=== PATIENT | male | born 1990 | race Caucasian/White ===

== ENCOUNTER 2017-07-03 17:32 | Inpatient (IN) | payer OTHER ==
[~2017-07-03] VITALS: Ht 198.1 cm; Wt 74.0 kg
[2017-07-03 17:44] LABS: BASOPHIL (%) 0.3 % (0-1); BASOPHIL COUNT 0.1 K/uL (0-0.1); EOSINOPHIL COUNT 0.2 K/uL (0-0.3); HEMATOCRIT 39.6 % (38.0-50.0); HEMOGLOBIN 13.7 G/DL (12.5-16.6); IMMATURE GRANULOCYTE (%) 0.4 % (0.0-0.7); LYMPHOCYTE (%) 8.5 % (15-42); LYMPHOCYTE COUNT 1.3 K/uL (1.0-2.8); MCH 30.2 PG (29.0-34.0); MCHC 34.6 G/DL (30.0-36.0); MCV 87.2 FL (86-99); MONOCYTE (%) 5.9 % (3-12); MONOCYTE COUNT 0.9 K/uL (0-0.8); NEUTROPHIL (%) 83.9 % (45-76); NEUTROPHIL COUNT 12.4 K/uL (1.8-6.4); PLATELET COUNT 280 K/uL (156-360); RBC DIS.WIDTH-CV 12.2 % (11.8-14.6); RBC DIS.WIDTH-SD 39.2 % (39-53); RED BLOOD COUNT 4.54 M/uL (4.00-5.50); WHITE BLOOD COUNT 14.8 K/uL (4.1-10.2)
[2017-07-03 18:18] LABS: AMYLASE 25 IU/L (1-118); CHLORIDE 102 MEQ/L (99-109); CREATININE 0.8 MG/DL (0.6-1.3); GFR ESTIMATE (CALCULATED) > 59 mL/min/ (58.99-99999); GLUCOSE 106 mg/dL (70-99); LIPASE 11 U/L (1.0-51.0); POTASSIUM 4.4 MEQ/L (3.7-5.4); SERUM ETHYL ALCOHOL < 10 mg/dL; SODIUM 138 MEQ/L (136-147); UREA NITROGEN (BUN) 15 mg/dL (9-23)
[2017-07-03] MEDS ORDERED: MOBIC7.5 MG PO (18:21)
[2017-07-03] MEDS ORDERED: BACLOFEN10 MG PO ×3 (18:21→18:22)
[2017-07-03] MEDS ORDERED: GLUCOSAMINE &1 EACH PO (18:21)
[2017-07-03 22:15] VITALS: BP 159/77
[2017-07-04] VITALS (7 sets, daily range): BP systolic 102–125; BP diastolic 54–75
[2017-07-04 05:20] LABS: HEMATOCRIT 36.5 % (38.0-50.0); HEMOGLOBIN 12.7 G/DL (12.5-16.6); MCH 30.3 PG (29.0-34.0); MCHC 34.8 G/DL (30.0-36.0); MCV 87.1 FL (86-99); PLATELET COUNT 249 K/uL (156-360); RBC DIS.WIDTH-CV 12.4 % (11.8-14.6); RBC DIS.WIDTH-SD 39.7 % (39-53); RED BLOOD COUNT 4.19 M/uL (4.00-5.50); WHITE BLOOD COUNT 9.1 K/uL (4.1-10.2)
[2017-07-04 05:47] LABS: ALBUMIN 4.4 G/DL (3.2-4.8); ALKALINE PHOSPHATASE 81 IU/L (3-129); ALT (GPT) 19 IU/L (3-49); AST (GOT) 21 IU/L (2-34); CHLORIDE 101 MEQ/L (99-109); CREATININE 0.7 MG/DL (0.6-1.3); GFR ESTIMATE (CALCULATED) > 59 mL/min/ (58.99-99999); GLUCOSE 85 mg/dL (70-99); POTASSIUM 3.7 MEQ/L (3.7-5.4); SODIUM 138 MEQ/L (136-147); TOTAL BILIRUBIN 1.6 MG/DL (0.0-1.0); TOTAL PROTEIN 6.9 G/DL (6.4-8.3); UREA NITROGEN (BUN) 9 mg/dL (9-23)
[2017-07-05 03:30] VITALS: BP 130/60
[2017-07-05 07:14] VITALS: BP 120/66
[2017-07-05 11:40] VITALS: BP 126/73
[2017-07-05 15:50] VITALS: BP 112/68
[2017-07-05 19:00] VITALS: BP 146/76
[2017-07-05 23:55] VITALS: BP 118/67
[2017-07-06 01:26] VITALS: BP 124/72
[2017-07-06 02:30] VITALS: BP 124/72
[2017-07-06 08:27] VITALS: BP 125/68
[2017-07-06 11:58] VITALS: BP 121/65
[2017-07-06] MEDS ORDERED: TRAMADOL HCL50 MG PO (13:14)
[2017-07-06] MEDS ORDERED: CYCLOBENZAPRINE5 MG PO (13:14)
== END 2017-07-06 15:01 | DRG 200 ==
LOC: TRA 17:32 → 4EAST 21:38 → EDOF 21:38 → ENRESERV 21:39 → 4EAST 22:11 → ENRESERV 07-06 00:10 → 3EAST 07-06 01:23
PROVIDERS: Emergency Medicine; Student in an Organized Health Care Education/Training Program
PROC: 0HQHXZZ Repair Right Upper Leg Skin, External Approach (ICD-10-PCS; principal; 2017-07-03)
PROC: 0HQJXZZ Repair Left Upper Leg Skin, External Approach (ICD-10-PCS; principal; 2017-07-03)
PROC: 0HQBXZZ Repair Right Upper Arm Skin, External Approach (ICD-10-PCS; principal; 2017-07-03)
PROC: 0HQ1XZZ Repair Face Skin, External Approach (ICD-10-PCS; principal; 2017-07-03)
DX: T79.7XXA Traumatic subcutaneous emphysema, initial encounter (principal); J93.83 Other pneumothorax; S21.119A Laceration without foreign body of unspecified front wall of thorax without penetration into thoracic cavity, initial encounter; G89.29 Other chronic pain; M54.9 Dorsalgia, unspecified; Z88.0 Allergy status to penicillin; Z91.013 Allergy to seafood; Z65.3 Problems related to other legal circumstances
CPT/HCPCS: 70450; 70491; 71045; 71046; 71260; 74177; 80048; 80053; 81003; 82150; 83690; 85025; 85027; 86850; 86900; 86901; 99281; 99285; G0480; J2270; J3010; J7120